=== PATIENT | female | born 1940 | race Caucasian/White ===

== ENCOUNTER 2020-01-16 21:34 | Emergency (ER) | payer MEDICARE ==
[~2020-01-16] VITALS: Ht 160 cm; Wt 58.5 kg
[2020-01-16 21:41] VITALS: BP 166/94
[2020-01-16] MEDS ORDERED: PROPARACAINE OPHTH 0.5%, 15ML ONE (22:29)
[2020-01-16] MEDS ORDERED: DIPH,PERTUSS(ACELL),TET VAC/PF 0.5 ML IM-VACC ONE ×2 (22:30→22:36)
[2020-01-16] MEDS ORDERED: BUPIVACAINE 0.25% INFIL ONE (22:30)
[2020-01-16] MEDS ORDERED: LIDOCAINE-MPF 1%, 5ML INFIL ONE (22:30)
[2020-01-16] MEDS ORDERED: LIDOCAINE-MPF 1%, 5ML ONE (22:30)
[2020-01-16] MEDS ORDERED: BUPIVACAINE 0.25% ONE (22:35)
[2020-01-16] MEDS ORDERED: PLEASE ENTER ALLERGIES MC SCH (23:00)
[2020-01-16] MEDS ORDERED: NEOSPORIN OINT. PKT 1 PACKET ONE (23:20)
== END 2020-01-16 23:52 ==
LOC: ED 23:46
DX: S61.241A Puncture wound with foreign body of left index finger without damage to nail, initial encounter (principal); S60.450A Superficial foreign body of right index finger, initial encounter; I10 Essential (primary) hypertension; W45.8XXA Other foreign body or object entering through skin, initial encounter; Y93.89 Activity, other specified; Y92.89 Other specified places as the place of occurrence of the external cause; Y99.8 Other external cause status
CPT/HCPCS: 10120; 73140; 90471; 90715; 99285; J3490; 20525; 99284